=== PATIENT | female | born 2000 | race Caucasian/White ===

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

== ENCOUNTER 2020-12-07 10:59 | Emergency (ER) | payer OTHER ==
[~2020-12-07] VITALS: Ht 170.2 cm; Wt 66.7 kg
[2020-12-07 11:05] VITALS: BP 134/73
--- NOTE | 2020-12-07 11:08 | NUR ---
PT AMBULATED TO BED 5, STEADY GAIT.
--- NOTE | 2020-12-07 11:11 | NUR ---
20 YO FEMALE BIBS WITH C/O BILATERAL AXILLA PAIN 9/10 X3 MONTHS. PT HAS ONE NODULE TO RIGHT AXILLA, MOVEABLE, WARM, AND TENDER TO TOUCH. 2 NODULES TO LEFT AXILLA, MOVEABLE, WARM, AND TENDER TO TOUCH WITH REDNESS APPROX 2 CM IN DIAMETER EACH. PT DESCRIBES PAIN BRUISED FEELING, THAT IS WORSE WHEN WEARING TIGHT CLOTHES OR DURING PALPATION. DENIES FEVER, CHILLS, N/V/D. PT STATES SHE HAS A FAM HX OF CANCER TO BOTH SIDES OF FAMILY. MED HX: DENIES ALLERGIES: DENIES
--- NOTE | 2020-12-07 11:25 | NUR ---
SAID AT BEDSIDE EVALUATING PT.
[2020-12-07] MEDS ORDERED: IBUPROFEN 600 MG TAB PO ONE (11:30)
[2020-12-07] MEDS ORDERED: IBUP-2213 PO (11:33)
[2020-12-07 11:38] VITALS: BP 134/73
== END 2020-12-07 11:38 | disposition home or self-care (01) ==
LOC: MED 10:59
DX: M79.601 Pain in right arm (principal); M79.602 Pain in left arm; N64.4 Mastodynia
CPT/HCPCS: 99282

== ENCOUNTER 2021-02-05 23:35 | Emergency (ER) | payer OTHER ==
[~2021-02-05] VITALS: Ht 170.2 cm; Wt 67.1 kg
[~2021-02-05 23:35] MED LIST changes: +IBUP-2213 PO
[2021-02-05 23:51] VITALS: BP 137/88
--- NOTE | 2021-02-05 23:55 | NUR ---
TO LOBBY A/W BED AMBULATORY
--- NOTE | 2021-02-06 01:15 | NUR ---
PATIENT CALL TO BED, NO RESPONSE PATIENT LEFT WITHOUT BEING SEEN BY DR. SALAZAR. NO FURTHER CARE PROVIDED FOR PATIENT.
--- NOTE | 2021-02-06 01:20 | NUR ---
CALLED FOR THE SECOND TIME , NO RESPONSE
--- NOTE | 2021-02-06 01:30 | NUR ---
CALLED FOR THE THIRD TIME , NO RESPONSE
[2021-02-06] MEDS ORDERED: DIPH25TA53 PO (09:00)
[2021-02-06] MEDS ORDERED: KEN.1O80 TP (09:00)
== END 2021-02-06 01:15 | disposition left against medical advice (07) ==
LOC: MED 23:35
DX: R21 Rash and other nonspecific skin eruption (principal); Z53.21 Procedure and treatment not carried out due to patient leaving prior to being seen by health care provider

== ENCOUNTER 2021-02-06 08:04 | Emergency (ER) | payer OTHER ==
[~2021-02-06] VITALS: Ht 170.2 cm; Wt 66.7 kg
[2021-02-06 08:11] VITALS: BP 114/73
--- NOTE | 2021-02-06 08:15 | NUR ---
BIB SELF C/O ITCHY RASH ON NOEL KNEES & ELBOWS X LAST NIGHT. PT TOOK CLARITINE 1 TAB 1 HOUR AGO THIS AM. PMH: DENIES
[2021-02-06] MEDS ORDERED: KEN.1O80 TP (09:00)
[2021-02-06] MEDS ORDERED: DIPH25TA53 PO (09:00)
--- NOTE | 2021-02-06 09:06 | NUR ---
Patient discharged with v/s stable. Written and verbal after care instructions given and explained. Patient alert, oriented and verbalized understanding of instructions. Ambulatory with steady gait. All questions addressed prior to discharge. ID band removed. Patient advised to follow up with PMD. Rx of BENADRYL & KENALOG given. Patient educated on indication of medication including possible reaction and side effects. Opportunity to ask questions provided and answered.
[2021-02-06 09:07] VITALS: BP 119/68
== END 2021-02-06 09:06 | disposition home or self-care (01) ==
LOC: MED 08:04
DX: R21 Rash and other nonspecific skin eruption (principal)
CPT/HCPCS: 99283

== ENCOUNTER 2021-10-06 12:42 | Emergency (ER) | payer OTHER ==
[~2021-10-06] VITALS: Ht 170.2 cm; Wt 66.7 kg
[~2021-10-06 12:42] MED LIST changes: +DIPH25TA53 PO; +KEN.1O80 TP
[2021-10-06 12:48] VITALS: BP 113/67
--- NOTE | 2021-10-06 13:00 | NUR ---
21 Y/O FEMALE BIB SELF C/O REDNESS AND BLEEDING FROM [place]. CURRENTLY THERE IS NO BLEEDING. PMH:DENIES
[2021-10-06] MEDS ORDERED: IBUP-2213 PO (13:35)
[2021-10-06] MEDS ORDERED: CEPH-588 PO (13:35)
[2021-10-06 13:49] VITALS: BP 106/78
--- NOTE | 2021-10-06 13:53 | NUR ---
Patient discharged with v/s stable. Written and verbal after care instructions given and explained. Patient alert, oriented and verbalized understanding of instructions. Ambulatory with steady gait. All questions addressed prior to discharge. ID band removed. Patient advised to follow up with PMD. Rx of KEFLEX, IBUPROFEN given. Patient educated on indication of medication including possible reaction and side effects. Opportunity to ask questions provided and answered.
== END 2021-10-06 13:53 | disposition home or self-care (01) ==
LOC: MED 12:42
DX: L03.316 Cellulitis of umbilicus (principal); Z79.899 Other long term (current) drug therapy; Z79.1 Long term (current) use of non-steroidal anti-inflammatories (NSAID)
CPT/HCPCS: 99283

== ENCOUNTER 2022-01-20 15:28 | Emergency (ER) | payer OTHER ==
[~2022-01-20] VITALS: Ht 167.6 cm; Wt 66.7 kg
[~2022-01-20 15:28] MED LIST changes: +CEPH-588 PO
[2022-01-20 15:47] VITALS: BP 128/82
--- NOTE | 2022-01-20 16:46 | NUR ---
PT AMBULATED TO BED 9 WITH STEADY GAIT
--- NOTE | 2022-01-20 16:46 | NUR ---
21/F WALKED IN ACCOMPANIED BY MOM C/O HEADACHE ACCOMPANIED BY SORETHROAT AND SUBJECTIVE FEVER. AFEBRILE AT TRIAGE. AAOX4, AMBULATORY. NKA PMH: CHRONIC MIGRAINES RX: NERVTECH
[2022-01-20] MEDS ORDERED: diphenhydrAMINE 50 MG/ML VIAL IVP ONE (17:05)
[2022-01-20] MEDS ORDERED: ONDANSETRON 4 MG/2 ML VIAL IVP ONE (17:05)
[2022-01-20] MEDS ORDERED: NACL 0.9% 1,000 ML IV ONE (17:05)
[2022-01-20] MEDS ORDERED: ACETAMINOPHEN 100 ML IV STA (17:05)
--- NOTE | 2022-01-20 17:39 | NUR ---
COVID FLU AND STREP SWAB COLLECTED AND SENT TO LAB
[2022-01-20] MEDS ORDERED: PENICILLIN G BENZATHINE L-A 1.2 MU/2 ML SYR IM ONE (18:30)
[2022-01-20] MEDS ORDERED: PRED20TA5 PO (19:27)
[2022-01-20] MEDS ORDERED: IBUP-2213 PO (19:27)
[2022-01-20] MEDS ORDERED: CIPR500T4 PO (19:28)
--- NOTE | 2022-01-20 19:47 | NUR ---
d/c with VSS. d/c education given. opportunity to ask questions given and answered. rx of cipro, motrin and prednisone given. IV site removed, bleeding controlled with sterile gauze and reinforced with tape.
[2022-01-20 19:48] VITALS: BP 111/69
== END 2022-01-20 19:47 | disposition home or self-care (01) ==
LOC: MED 15:28
DX: J02.0 Streptococcal pharyngitis (principal); Z20.822 Contact with and (suspected) exposure to COVID-19; N39.0 Urinary tract infection, site not specified
CPT/HCPCS: 81002; 81025; 87081; 87426; 87804; 96372; 96374; 96375; 99284; J0561; J1200; J2405; J7030

== ENCOUNTER 2022-01-28 09:05 | Emergency (ER) | payer OTHER ==
[~2022-01-28] VITALS: Ht 167.6 cm; Wt 65.3 kg
[~2022-01-28 09:05] MED LIST changes: +CIPR500T4 PO; +PRED20TA5 PO
[2022-01-28 09:17] VITALS: BP 121/85
[2022-01-28] MEDS ORDERED: AMOX1TAB8 PO (11:19)
[2022-01-28] MEDS ORDERED: IBUP-2213 PO (11:19)
[2022-01-28] MEDS ORDERED: BENZ-300 PO (11:19)
--- NOTE | 2022-01-28 11:20 | NUR ---
21 y/o female bib self, pt presents to ed with body aches, sore throat. pt states she finished antibiotics, but is still c/o of same s/s. denies n/v/d, fevers, cough, cp, sob. skin is pink/warm/dry. a&o x4 with even and steady gait. lungs clear bl, heart rate even and regular. pt states pain is 7/10 at this time. vss. ermd made aware of pt. pmh: migraines nka med: denies
[2022-01-28 11:27] VITALS: BP 121/85
--- NOTE | 2022-01-28 11:27 | NUR ---
pt left before dx paperwork
--- NOTE | 2022-01-28 11:27 | NUR ---
pt came back for paperwork
== END 2022-01-28 11:27 | disposition home or self-care (01) ==
LOC: MED 09:05
DX: J02.9 Acute pharyngitis, unspecified (principal)
CPT/HCPCS: 99283

== ENCOUNTER 2022-07-11 12:03 | Emergency (ER) | payer OTHER ==
[~2022-07-11] VITALS: Ht 167.6 cm; Wt 66.7 kg
[~2022-07-11 12:03] MED LIST changes: +AMOX1TAB8 PO; +BENZ-300 PO
[2022-07-11 12:05] VITALS: BP 116/66
--- NOTE | 2022-07-11 12:12 | NUR ---
PT AMB TO BED 7.
--- NOTE | 2022-07-11 12:27 | NUR ---
22 y/o female bib self with c/o sore throat x 3 days. Patient reports non-productive cough and subjective fever. Patient has been taking Ibuprofen for symptoms. Denies any sick contacts or new foods. Patient has runny nose and chills. Medical History: Philipes VALDEZDA
--- NOTE | 2022-07-11 12:43 | NUR ---
BUSINESS OPERATIONS DIRECTOR [place] evaluating patient at bedside.
[2022-07-11] MEDS ORDERED: DEXAMETHASONE 4 MG/ML VIAL PO ONE (12:45)
[2022-07-11] MEDS ORDERED: BENZ-301 PO (12:54)
[2022-07-11] MEDS ORDERED: CEPH-588 PO (12:54)
[2022-07-11] MEDS ORDERED: IBUP-2213 PO (12:54)
--- NOTE | 2022-07-11 12:57 | NUR ---
Strep specimen obtained, handed to CPT at bedside.
--- NOTE | 2022-07-11 12:58 | NUR ---
Haile millertanisha in [facility] - 07/11/22 at 1321 [facility] The patient's care was reviewed and supervised by Nuha Corrales, RN, RN.
[2022-07-11 13:16] VITALS: BP 116/66
--- NOTE | 2022-07-11 13:16 | NUR ---
Patient discharged with v/s stable. Written and verbal after care instructions given and explained. Patient alert, oriented and verbalized understanding of instructions. Ambulatory with steady gait. All questions addressed prior to discharge. ID band removed. Patient advised to follow up with PMD. Rx of KEFLEX, IBUPROFEN, CEPACOL (SENT) given. Patient educated on indication of medication including possible reaction and side effects. Opportunity to ask questions provided and answered. WORK NOTE GIVEN
--- NOTE | 2022-07-11 13:21 | NUR ---
The patient's care was reviewed and supervised by Nuha Corrales, RN, RN.
== END 2022-07-11 13:16 | disposition home or self-care (01) ==
LOC: MED 12:03
DX: J02.8 Acute pharyngitis due to other specified organisms (principal); B96.89 Other specified bacterial agents as the cause of diseases classified elsewhere; H92.01 Otalgia, right ear; R05.9 Cough, unspecified; R09.81 Nasal congestion; Z79.899 Other long term (current) drug therapy
CPT/HCPCS: 87081; 99283; J1100

== ENCOUNTER 2022-07-28 12:38 | Emergency (ER) | payer OTHER ==
[~2022-07-28] VITALS: Ht 167.6 cm; Wt 66.2 kg
[~2022-07-28 12:38] MED LIST changes: +BENZ-301 PO
[2022-07-28 12:48] VITALS: BP 127/84
--- NOTE | 2022-07-28 12:51 | NUR ---
PT AMBULATED TO ER BED 1
[2022-07-28] MEDS ORDERED: IBUPROFEN CHILDRENS 100 MG/5 ML UDC PO ONE (13:20)
[2022-07-28] MEDS ORDERED: DEXAMETHASONE 4 MG/ML VIAL PO ONE (13:20)
[2022-07-28] MEDS ORDERED: AMOXIL/CLAVULANATE 875/125 MG 1 TAB PO ONE (13:20)
[2022-07-28] MEDS ORDERED: AMOX200P9 PO (13:53)
[2022-07-28] MEDS ORDERED: PRED20TA5 PO (13:53)
[2022-07-28] MEDS ORDERED: MENT7.6L6 PO (13:53)
[2022-07-28] MEDS ORDERED: LIDO100S PO (13:53)
[2022-07-28] MEDS ORDERED: ONDA-188 SL (13:54)
[2022-07-28 14:35] VITALS: BP_DIAS 84
--- NOTE | 2022-07-28 14:38 | NUR ---
Patient discharged with v/s stable. Written and verbal after care instructions given and explained. Patient alert, oriented and verbalized understanding of instructions. Ambulatory with steady gait. All questions addressed prior to discharge. ID band removed. Patient advised to follow up with PMD. Rx of LIDOCAINE VISCOUS given. Patient educated on indication of medication including possible reaction and side effects. Opportunity to ask questions provided and answered.
== END 2022-07-28 14:38 | disposition home or self-care (01) ==
LOC: MED 12:38
DX: J03.90 Acute tonsillitis, unspecified (principal); Z79.899 Other long term (current) drug therapy
CPT/HCPCS: 99284; J1100

== ENCOUNTER 2023-01-08 08:13 | Emergency (ER) | payer OTHER ==
[~2023-01-08] VITALS: Ht 167.6 cm; Wt 67.1 kg
[~2023-01-08 08:13] MED LIST changes: +AMOX200P9 PO; +LIDO100S PO; +MENT7.6L6 PO; +ONDA-188 SL
[2023-01-08 08:18] VITALS: BP 111/68; PULSE 69; RESP 20; TEMP 98.3; O2SAT 99
[2023-01-08] MEDS ORDERED: FAMOTIDINE 20 MG TAB PO ONE (08:45)
[2023-01-08] MEDS ORDERED: DEXAMETHASONE 4 MG TAB PO ONE (08:45)
[2023-01-08] MEDS ORDERED: CRUSHER, PILL MC ONE (08:58)
[2023-01-08] MEDS ORDERED: FAMO-90 PO (09:03)
[2023-01-08] MEDS ORDERED: DIPH25TA53 PO (09:03)
== END 2023-01-08 09:15 | disposition home or self-care (01) ==
LOC: MED 08:13
DX: L50.9 Urticaria, unspecified (principal); Z79.899 Other long term (current) drug therapy
CPT/HCPCS: 99284; Q0163

== ENCOUNTER 2023-01-14 17:49 | Emergency (ER) | payer OTHER ==
[~2023-01-14] VITALS: Ht 167.6 cm; Wt 66.7 kg
[~2023-01-14 17:49] MED LIST changes: +FAMO-90 PO
[2023-01-14 17:56] VITALS: BP 131/79; PULSE 85; RESP 20; TEMP 98.9; O2SAT 100
[2023-01-14] MEDS ORDERED: KETOROLAC 60 MG/2 ML VIAL IM ONE (18:25)
[2023-01-14] MEDS ORDERED: IBUP-2213 PO (18:36)
[2023-01-14 18:50] VITALS: BP 131/79; PULSE 85; RESP 20; TEMP 98.9; O2SAT 100
== END 2023-01-14 19:09 | disposition home or self-care (01) ==
LOC: MED 17:49
DX: R07.89 Other chest pain (principal); Z79.899 Other long term (current) drug therapy
CPT/HCPCS: 96372; 99283; J1885

== ENCOUNTER 2024-01-01 21:00 | Emergency (ER) | payer OTHER ==
[~2024-01-01] VITALS: Ht 167.6 cm; Wt 71.7 kg
[~2024-01-01 21:00] MED LIST changes: +MENT7.6L13 PO; -MENT7.6L6 PO
[2024-01-01 21:05] VITALS: BP 117/76; PULSE 82; RESP 18; TEMP 98.6; O2SAT 99
[2024-01-01] MEDS ORDERED: PRED20TA5 PO (22:16)
[2024-01-01 22:36] LABS: BILIRUBIN,URINE NEGATIVE (NEGATIVE); BLOOD, URINE 1+ (NEGATIVE); COLOR,URINE YELLOW (YELLOW); LEUKOCYTE ESTERASE ,URINE 1+ (NEGATIVE); NITRITE, URINE NEGATIVE (NEGATIVE); PROTEIN,URINE NEGATIVE (NEGATIVE); UGLUCOSE NEGATIVE (NEGATIVE); UROBILINOGEN,URINE 0.2 EU/dL (0.2 - 1)
[2024-01-01 22:38] LABS: APPEARANCE,URINE HAZY (CLEAR)
[2024-01-01 22:44] LABS: BACTERIA,URINE 1+ /HPF (None Seen); MUCUS,URINE None Seen /LPF (None Seen); SQUAMOUS EPITHELIAL CELL,UR 4-10 (MOD) /LPF (0-3 (FEW)); WBC,URINE 0-5 /HPF (0-5)
[2024-01-02] MEDS ORDERED: CEPH-588 PO (00:15)
== END 2024-01-02 00:52 | disposition home or self-care (01) ==
LOC: MED 21:00
DX: L50.9 Urticaria, unspecified (principal); N39.0 Urinary tract infection, site not specified; Z79.899 Other long term (current) drug therapy
CPT/HCPCS: 81001; 81025; 87086; 99283